=== PATIENT | male | born 2000 | race Caucasian/White ===

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

== ENCOUNTER 2025-05-31 16:47 | Emergency (ER) | payer OTHER, SELFPAY ==
[2025-05-31 16:48] VITALS: BP 134/77; PULSE 66; RESP 16; TEMP 36.6; O2SAT 99; BMI 24.1
--- NOTE | 2025-05-31 17:00 | EKG12_ITS ---
Test Reason : CP Blood Pressure : */* mmHG Vent. Rate : 74 BPM Atrial Rate : 74 BPM P-R Int : 176 ms QRS Dur : 96 ms QT Int : 376 ms P-R-T Axes : 36 50 30 degrees QTcB Int : 417 ms Normal sinus rhythm Normal ECG Confirmed by Mark Norris ([id number]), telegraph editor NASEEM MARCOS ([id number]) on 06/01/2025 10:22:03 AM Referred By: Confirmed By: Mark Norris
--- NOTE | 2025-05-31 17:38 | ED.VIS.CHEST ---
HPI History of Present Illness Chief Complaint: Chest Pain Narrative Narrative: Patient is a 24-year-old male with past medical history anxiety who presents to the emergency department chief complaint chest pain. He states that he woke up around 5 AM and noted that he had chest discomfort. He states that he feels like there is tightness in the left side of his chest. He states that he does feel like he has some shortness of breath with this as well. Patient denies any history of blood clots and denies any recent travel history. Patient denies any family history of early cardiac . Patient states that has been pretty constant all day and was able to go to work however he is still concerned as the pain has persisted therefore he came here for further evaluation management. Patient denies tobacco use, alcohol use, drug use PFSH PFSH Medical History no medical history Home Medications ?Medication ?Instructions ?Recorded ?Last Taken ?Type No Known/Unobtainable [No Known 06/02/15 Unknown History Home Medications] Allergy/AdvReac Type Severity Reaction Status Date / Time No Known Allergies Allergy Verified 05/31/25 16:50 Family History no significant family his Surgical History no surgical history Social History Smoking Status: Never smoker ROS ROS ED ROS Narrative Constitutional: Denies any fevers, chills, headaches Eyes: Denies double vision Cardiovascular: Complains of chest pain as noted above denies palpitations Respiratory: Complains of shortness of breath as noted above denies coughing wheezing Abdomen: Denies abdominal pain nausea vomit diarrhea : Denies any urinary symptoms Neurological: Denies any numbness, weakness, tingling Musculoskeletal: Denies back pain Skin: Denies any rashes or lesions EXAM Physical Exam Narrative Exam Narrative: General: Patient lying in bed rest comfortably did not appear in any acute distress Head: Atraumatic, normocephalic Eyes: PERRL bilaterally, EOMI bilaterally, no conjunctival injection noted Neck: Soft, supple, trachea midline Cardiovascular: Regular rate and rhythm no murmurs gallops rubs noted Respiratory: Clear to auscultation bilaterally Abdomen: Soft, nondistended, no tenderness to palpation Extremities: +5/5 strength noted in the bilateral upper and lower extremities, radial pulse +2/4 in the bilateral extremities, no pedal edema exam Neurological: Patient follow commands knew that he was at [facility] year is 2024 Skin: Warm, dry, intact no rashes or lesions noted Const Vital Signs: 05/31/25 16:48 05/31/25 17:11 05/31/25 17:47 Temperature 97.8 F Temperature Source Oral Pulse Rate 66 Respiratory Rate 16 Respiratory Effort Normal Non-Labored Blood Pressure 134/77 H Blood Pressure Mean 96 Pulse Ox 99 Oxygen Delivery Method Room Air Room Air 05/31/25 18:00 05/31/25 18:26 Temperature 97.8 F Temperature Source Pulse Rate 80 60 Respiratory Rate 18 15 Respiratory Effort Blood Pressure 120/80 126/67 H Blood Pressure Mean 93 86 Pulse Ox 98 98 Oxygen Delivery Method MDM MDM MDM Narrative Medical decision making narrative: Patient is a 24-year-old male who presents to the emergency department chief complaint chest pain shortness of breath. On the differential diagnose include similar to ACS, pericarditis, pneumonia, pneumothorax, PE although have low suspicion for this. Once workup is obtained reviewed he will be reevaluated. [place] Score (Revised) for Pulmonary Embolism from [email or web address] on 05/31/2025 All calculations should be rechecked by clinician prior to use RESULT SUMMARY: 0 points Low risk group: 7-9% incidence of PE from several studies. INPUTS: Age >65 ?> 0 = No Previous DVT or PE ?> 0 = No Surgery (under general anesthesia) or lower limb fracture in past month ?> 0 = No Active malignant condition ?> 0 = No Unilateral lower limb pain ?> 0 = No Hemoptysis ?> 0 = No Heart rate ?> 0 = < 75 Pain on lower limb palpation and unilateral edema ?> 0 = No Patient's CBC reviewed showed no evidence leukocytosis white blood count normal 9.3, hemoglobin 15.2, plate count 259. Patient sodium normal 141, [place] normal 3.9, creatinine was 0.80. Patient's troponin was less than 6, TSH normal at 2.75. Patient EKG reviewed showed sinus rhythm with a rate of 74 bpm with [place] interval normal at 176. Patient's chest x-ray reviewed by myself and by radiology showed no acute cardiopulmonary processes. Discussed results with the patient he would like to go home at this point in time. Patient was advised to return with worsening symptoms or concerns. He is agreeable this plan all question concerns answered he is discharged home in stable condition. Lab Data Labs: Laboratory Results - last 24 hr 05/31/25 17:08 WBC 9.3 RBC 5.02 Hgb 15.2 Hct 41.7 MCV 83.1 MCH 30.3 MCHC 36.5 H RDW Std Deviation 37.7 RDW Coeff of Monique 12.3 Plt Count 259 MPV 10.5 Immature Gran % (Auto) 0.200 Neut % (Auto) 65.0 Lymph % (Auto) 25.7 [place] % (Auto) 8.8 Eos % (Auto) 0.0 Baso % (Auto) 0.3 Absolute Neuts (auto) 6.0 Absolute Lymphs (auto) 2.38 Nucleated RBC % 0 Sodium 141 Potassium 3.9 Chloride 102 Carbon Dioxide 27.2 Anion Gap 12 BUN 13 Creatinine 0.80 Estim Creat Clear Calc 158.97 Est GFR (MDRD) Non-Af 128 BUN/Creatinine Ratio 16.8 Glucose 68 L Calcium 9.3 Troponin T High Sens < 6 TSH 2.750 Radiography Diagnostic Testing: Clinical Impression(s) from Imaging Studies Chest X-Ray 05/31/25 17:40 IMPRESSION: No focal consolidation. [id number] Discharge Plan Triage Chief Complaint: Chest Pain ED Provider: Scott Livingston Dx/Rx/DC Orders Clinical Impression: Chest pain, History of anxiety Prescriptions: No Action No Known Home Medications Primary Care Provider: Care Physician,No Primary Referrals: Ariel Baez MD [Non-Staff] - Activity Restrictions/Additional Instructions: Your blood work did not show any acute findings your chest x-ray was normal and your EKG. Follow-up your doctor in the outpatient setting. Return with worsening symptoms or any concerns Print Language: Kyrgyz Disposition Disposition: Home, Self Care
--- NOTE | 2025-05-31 17:40 | RAD_ITS ---
PROCEDURE: CHEST 1 VIEW (PORTABLE) 05/31/2025 REASON FOR EXAM: CHEST PAIN TECHNIQUE: Frontal view of the chest. COMPARISON: None FINDINGS: No focal consolidation. No pleural effusion or pneumothorax. Cardiac silhouette is within normal limits. No acute fractures. RAD/Chest 1 View (Portable) IMPRESSION: No focal consolidation. Reading [id number]
[2025-05-31] MEDS: 0.9% Normal Saline (1000mL) 1,000 ML 999 ML IV (17:57)
[2025-05-31 17:58] LABS: Hematocrit 41.7 % (40-54); Hemoglobin 15.2 g/dL (13.0-16.5); Immature Granulocytes Count 0.020 X10^3/uL (0.0-0.0); Mean Corp Hgb Conc 36.5 g/dL (32-36); Mean Corpuscular Volume 83.1 fL (80-94); Mean Platelet Vol. 10.5 fl (6.2-12.0); NRBC Flagged by Analyzer 0 % (0-5); Platelet Count 259 K/mm3 (150-450); RBC Distribution Width CV 12.3 % (11.6-14.6); RBC Distribution Width SD 37.7 fl (35.1-43.9); Red Blood Count 5.02 M/mm3 (4.6-6.2); White Blood Count 9.3 K/mm3 (4.4-11.0)
[2025-05-31 18:00] VITALS: BP 120/80; PULSE 80; RESP 18; O2SAT 98
[2025-05-31 18:18] LABS: Anion Gap 12 (5-15); BUN 13 mg/dL (4-19); BUN/Creat Ratio 16.8 RATIO (10-20); Calcium,Total 9.3 mg/dL (7.6-11.0); Carbon Dioxide 27.2 mmol/L (21.0-32.0); Chloride 102 mmol/L (98-108); Estimated Creatinine Clearance 158.97 ml/min (50-250); Glucose 68 mg/dL (70-99); Potassium 3.9 mmol/L (3.3-5.1); Troponin T High Sensitivity < 6 ng/L (<=22)
[2025-05-31 18:26] VITALS: BP 126/67; PULSE 60; RESP 15; TEMP 36.6; O2SAT 98
== END 2025-05-31 18:39 | disposition home or self-care (01) ==
PROVIDERS: Emergency Provider Emergency Medicine; Visit Provider Emergency Medicine
DX: R07.9 Chest pain, unspecified (principal); F41.9 Anxiety disorder, unspecified
CPT/HCPCS: 71045; 80048; 84443; 84484; 85025; 93005; 96360; 99283; A4216